=== PATIENT | female | born 1970 | race Two or more races ===

== ENCOUNTER 2018-09-23 18:28 | Emergency (ER) | payer OTHER ==
[~2018-09-23] VITALS: Ht 152.4 cm; Wt 71.7 kg
[2018-09-23 18:41] VITALS: BP 127/91
[2018-09-23] MEDS ORDERED: CYCLOBENZAPRINE 10 MG TABLET PO STA (19:02)
[2018-09-23] MEDS ORDERED: IBUPROFEN 800 MG TABLET PO STA (19:02)
[2018-09-23] MEDS ORDERED: IBUPROFEN 200 MG TABLET ONE (19:08)
[2018-09-23] MEDS ORDERED: CYCLOBENZAPRINE 10 MG TABLET ONE (19:08)
== END 2018-09-23 20:07 | disposition home or self-care (01) ==
LOC: ED 19:52
DX: S29.012A Strain of muscle and tendon of back wall of thorax, initial encounter (principal); F17.200 Nicotine dependence, unspecified, uncomplicated; X58.XXXA Exposure to other specified factors, initial encounter; Y93.89 Activity, other specified; Y92.89 Other specified places as the place of occurrence of the external cause; Y99.8 Other external cause status
CPT/HCPCS: 71045; 72072; 99283

== ENCOUNTER 2019-03-09 16:19 | Emergency (ER) | payer OTHER ==
[~2019-03-09] VITALS: Ht 152.4 cm; Wt 72.8 kg
[2019-03-09 16:30] VITALS: BP 143/86
[2019-03-09] MEDS ORDERED: DEXAMETHASONE 1 MG TABLET PO STA (16:54)
[2019-03-09] MEDS ORDERED: DEXAMETHASONE 4 MG TABLET ONE (16:55)
--- NOTE | 2019-03-09 17:05 | NUR ---
pt to rad
[2019-03-09] MEDS ORDERED: DEXAMETHASONE 4 MG TABLET PO ONE (17:30)
== END 2019-03-09 17:26 | disposition home or self-care (01) ==
LOC: ED 17:20
DX: J20.8 Acute bronchitis due to other specified organisms (principal); J02.8 Acute pharyngitis due to other specified organisms; B34.9 Viral infection, unspecified
CPT/HCPCS: 71046; 99283

== ENCOUNTER 2020-11-14 11:25 | Emergency (ER) | payer OTHER ==
[~2020-11-14] VITALS: Ht 152.4 cm; Wt 75.6 kg
--- NOTE | 2020-11-14 11:43 | NUR ---
PT walked back from triage with chief complaint of dizziness starting last night, intermittent BHAKTA and bilat arm tingling.
[2020-11-14] MEDS ORDERED: MECLIZINE CHEWABLE 25 MG TAB PO ONE (13:00)
--- NOTE | 2020-11-14 13:00 | NUR ---
PT RESTING IN BED. CALL LIGHT IN REACH
[2020-11-14] MEDS ORDERED: MECLIZINE CHEWABLE 25 MG TAB ONE (13:23)
[2020-11-14 13:28] LABS: BASOPHILS % (AUTO) 1 % (0-1); EOSINOPHILS % (AUTO) 1 % (1-7); LYMPHOCYTES % (AUTO) 31 % (22-44); MEAN CORPUSCULAR HEMOGLOBIN 27.5 pg (27.0-34.8); MEAN CORPUSCULAR HGB CONC 33.1 g/dL (32.4-35.8); MONOCYTES % (AUTO) 9 % (2-9); NEUTROPHILS % (AUTO) 58 % (42-75); PLATELET COUNT 393 x10^3/uL (130-400); RED BLOOD COUNT 4.97 x10^6/uL (3.82-5.3); RED CELL DISTRIBUTION WIDTH 14.4 % (9.6-15.2)
[2020-11-14 13:41] LABS: ALANINE AMINOTRANSFERASE 18 U/L (12-78); ALBUMIN 3.4 g/dL (3.4-5.0); ANION GAP 6 mmol/L (5-15); CALCIUM 8.7 mg/dL (8.5-10.1); CHLORIDE 110 mmol/L (98-107)
[2020-11-14 13:44] LABS: ALKALINE PHOSPHATASE 89 U/L (45-117); BILIRUBIN,TOTAL 0.5 mg/dL (0.2-1.0); CREATININE 0.45 mg/dL (0.55-1.02); TOTAL PROTEIN 7.4 g/dL (6.4-8.2)
--- NOTE | 2020-11-14 14:00 | NUR ---
PT TO CT
[2020-11-14] MEDS ORDERED: OMNIPAQUE 350 MG/ML, 100ML BOTTLE ONE (14:25)
--- NOTE | 2020-11-14 15:31 | NUR ---
PT RESTING IN BED, CALL SILVANA CRABTREE. VSS
[2020-11-14 16:24] VITALS: BP 125/79
--- NOTE | 2020-11-14 16:24 | NUR ---
DC instructions reviewed
== END 2020-11-14 16:40 | disposition home or self-care (01) ==
LOC: ED 11:55
DX: H81.12 Benign paroxysmal vertigo, left ear (principal); F17.210 Nicotine dependence, cigarettes, uncomplicated; R51.9 Headache, unspecified; R94.31 Abnormal electrocardiogram [ECG] [EKG]
CPT/HCPCS: 36415; 70450; 70496; 80053; 85025; 93005; 99285; 99406; Q9967